=== PATIENT | female | born 1995 | race Caucasian/White ===

== ENCOUNTER 2021-09-29 11:12 | Emergency (ER) | payer OTHER ==
[~2021-09-29] VITALS: Ht 175.3 cm; Wt 90.0 kg
[2021-09-29] MEDS ORDERED: LIDO:MAALOX 1:1 20 ML SINGLE DOSE. PO ONE (11:30)
[2021-09-29] MEDS ORDERED: IOHEXOL 300 MG/ML 75 ML VIAL. IV ONE (11:30)
[2021-09-29] MEDS ORDERED: ONDANSETRON PF 4 MG/2 ML VIAL. IVP ONE (11:30)
[2021-09-29] MEDS ORDERED: IV NORMAL SALINE 1,000ML 1,000 ML IV SCH (11:30)
--- NOTE | 2021-09-29 11:34 | PHYS DOC ---
General Adult HPI: HPI: Patient is a 26-year-old female who presents to the emergency department with nausea, vomiting and diarrhea that started this morning at 8 AM. Patient is also reporting epigastric sharp pain that she rates 10 out of 10. No treatment prior to arrival. Patient has no medical history, history of appendectomy. She states that she took a Plan B yesterday. Patient denies any fevers, urinary symptoms or blood in her stools or vomit. Patient reports that she did smoke marijuana today but has never had nausea and vomiting after smoking marijuana and reports that the symptoms started before she smoked marijuana. (JAZMIN COTO APRN) Review of Systems: Review of Systems: Constitutional: negative unless reported in HPI Eyes: negative unless reported in HPI HENT: negative unless reported in HPI Respiratory: negative unless reported in HPI Cardiovascular: negative unless reported in HPI GI: negative unless reported in HPI : negative unless reported in HPI Musculoskeletal: negative unless reported in HPI Integument: negative unless reported in HPI Neurologic: negative unless reported in HPI Endocrine: negative unless reported in HPI Lymphatic: negative unless reported in HPI Psychiatric: negative unless reported in HPI (JAZMIN COTO APRN) Physical Exam: PE: Constitutional: Well developed, well nourished, no acute distress, non-toxic appearance. [] HENT: Normocephalic, atraumatic, bilateral external ears normal, oropharynx moist, no oral exudates, nose normal. [] Eyes: PERRL, EOMI, conjunctiva normal, no discharge. [] Neck: Normal range of motion, no stridor Cardiovascular:Heart rate regular rhythm, no murmur [] Lungs & Thorax: Bilateral breath sounds clear to auscultation, hyperventilation [] Abdomen: Bowel sounds normal, soft, no abdominal rigidity or guarding, negative Ochoa sign, no rebound tenderness, pain with palpation epigastric region, no masses, no pulsatile masses. [] Skin: Warm, dry, no erythema, no rash. [] Back: No tenderness, no CVA tenderness. [] Extremities: No tenderness, no cyanosis, no clubbing, ROM intact, no edema. [] Neurologic: Alert and oriented X 3, normal motor function, normal sensory fu nction, no focal deficits noted. [] Psychologic: Affect normal, judgement normal, mood normal. [] (JAZMIN COTO APRN) Current Patient Data: Labs: Laboratory Tests Test 09/29/21 11:43 09/29/21 11:45 09/29/21 12:10 09/29/21 12:18 White Blood Count 17.5 x10^3/uL Red Blood Count 4.21 x10^6/uL Hemoglobin 12.8 g/dL Hematocrit 38.1 % Mean Corpuscular Volume 90 fL Mean Corpuscular Hemoglobin 31 pg Mean Corpuscular Hemoglobin Concent 34 g/dL Red Cell Distribution Width 12.9 % Platelet Count 253 x10^3/uL Neutrophils (%) (Auto) 87 % Lymphocytes (%) (Auto) 10 % Monocytes (%) (Auto) 3 % Eosinophils (%) (Auto) 0 % Basophils (%) (Auto) 0 % Neutrophils # (Auto) 15.2 x10^3uL Lymphocytes # (Auto) 1.8 x10^3/uL Monocytes # (Auto) 0.5 x10^3/uL Eosinophils # (Auto) 0.0 x10^3/uL Basophils # (Auto) 0.1 x10^3/uL Platelet Estimate Pending Sodium Level 137 mmol/L Potassium Level 3.7 mmol/L Chloride Level 102 mmol/L Carbon Dioxide Level 19 mmol/L Anion Gap 16 Blood Urea Nitrogen 11 mg/dL Creatinine 0.9 mg/dL Estimated GFR (Cockcroft-Gault) 75.7 BUN/Creatinine Ratio 12 Glucose Level 159 mg/dL Calcium Level 9.3 mg/dL Total Bilirubin 0.5 mg/dL Aspartate Amino Transf (AST/SGOT) 24 U/L Alanine Aminotransferase (ALT/SGPT) 25 U/L Alkaline Phosphatase 51 U/L Total Protein 7.6 g/dL Albumin 4.2 g/dL Albumin/Globulin Ratio 1.2 Lipase 72 U/L Maternal Serum HCG Beta Subunit < 1 mIU/mL Influenza Type A (Rapid) Negative Influenza Type B (Rapid) Negative SARS-CoV-2 Antigen (Rapid) Negative Urine Collection Type Unknown Urine Color Yellow Urine Clarity Hazy Urine pH 7.5 Urine Specific [place] 1.025 Urine Protein 30 mg/dl Urine Glucose (UA) Neg mg/dL Urine Ketones (Stick) >=160 mg/dL Urine Blood Trace Urine Nitrite Neg Urine Bilirubin Neg Urine Urobilinogen Dipstick 0.2 mg/dL Urine Leukocyte Esterase Neg Urine RBC 1-2 /HPF Urine WBC Rare /HPF Urine Squamous Epithelial Cells Mod /LPF Urine Bacteria Few /HPF Urine Mucus Slight /LPF Urine Opiates Screen Neg Urine Methadone Screen Neg Urine Barbiturates Neg Urine Phencyclidine Screen Neg Urine Amphetamine/Methamphetamine Neg Urine Benzodiazepines Screen Neg Urine Cocaine Screen Neg Urine Cannabinoids Screen Pos Urine Ethyl Alcohol Neg Bedside Urine HCG, Qualitative hcg negative Current Medications Medications (Trade) Dose Ordered Sig/Kevin Route PRN Reason Start Time Stop Time Status Last Admin Dose Admin Multi-Ingredient Mouthwash/Gargle (Gi Cocktail) 20 ml 1X ONCE PO 09/29/21 11:30 09/29/21 12:11 DC 09/29/21 12:02 Sodium Chloride 1,000 ml @ 1,000 mls/hr Q1H IV 09/29/21 11:30 09/29/21 12:29 DC 09/29/21 11:53 Ondansetron HCl (Zofran) 4 mg 1X ONCE IVP 09/29/21 11:30 09/29/21 12:11 DC 09/29/21 11:53 Fentanyl Citrate (Fentanyl 2ml Vial) 50 mcg 1X ONCE IVP 09/29/21 11:30 09/29/21 12:11 DC 09/29/21 11:53 Iohexol (Omnipaque 300 Mg/ml) 75 ml 1X ONCE IV 09/29/21 11:30 09/29/21 12:11 DC 09/29/21 12:37 Haloperidol Lactate (Haldol) 5 mg STK-MED ONCE .ROUTE 09/29/21 12:24 09/29/21 12:24 DC Haloperidol Lactate (Haldol) 5 mg 1X ONCE IVP 09/29/21 12:30 09/29/21 12:33 DC 09/29/21 12:27 (JAZMIN COTO APRN) EKG: EKG: EKG performed by ER staff at 1234 shows sinus rhythm with a rate of 69 with PACs, QTC is 426, no STEMI read by Dr. Dill at 1234 [] (JAZMIN COTO APRN) Radiology/Procedures: Radiology/Procedures: []PROCEDURE: CT ABD PELV W/ IV CONTRST ONLY EXAM: Abdomen and pelvis CT with intravenous contrast. HISTORY: Epigastric pain. TECHNIQUE: Computed tomographic images of the abdomen and pelvis were obtained following the administration of intravenous contrast. Multiplanar reformatting was performed. *One or more of the following individualized dose reduction techniques were utilized for this examination: 1. Automated exposure control. 2. Adjustment of the mA and/or kV according to patient size. 3. Use of iterative reconstruction technique. COMPARISON: None. FINDINGS: The exam is limited due to motion. Evaluation of the lower thorax is unremarkable. No suspicious hepatic lesion is seen. There is slight fatty infiltration along the falciform ligament. The gallbladder, pancreas, spleen and adrenal glands are unremarkable. There is a small simple left renal cyst. Follow-up is not routinely performed for simple cysts. There is an incidental retroaortic left renal vein. The appendix is surgically absent. No abnormally thickened or dilated loop of bowel is seen. The bladder is unremarkable. The uterus is unremarkable. There are multiple ovarian follicles with a physiologic dominant left ovarian follicle measuring 1.5 cm. There is trace pelvic free fluid, within physiologic limits for a premenopausal female. The aorta is normal in caliber. There is no lymphadenopathy. There is no acute or suspicious osseous finding. IMPRESSION: 1. No acute finding. 2. Small simple left renal cyst. 3. Limited exam due to motion. Electronically signed by: Sanjana Aleman MD (09/29/2021 12:51 PM) [id number] DICTATED AND SIGNED BY: SANJANA ALEMAN MD DATE: 09/29/21 1248 CC: TESSIE DILL DO; JAZMIN COTO APRN; PCP,NO ~MTH0 0 (JAZMIN COTO APRN) Heart Score: C/O Chest Pain: N/A Risk Factors: Risk Factors: DM, Current or recent (<one month) smoker, HTN, HLP, family history of CAD, obesity. Risk Scores: Score 0 - 3: 2.5% MACE over next 6 weeks - Discharge Home Score 4 - 6: 20.3% MACE over next 6 weeks - Admit for Clinical Observation Score 7 - 10: 72.7% MACE over next 6 weeks - Early Invasive Strategies (JAZMIN COTO APRN) Course & Med Decision Making: Course & Med Decision Making Pertinent Labs and Imaging studies reviewed. (See chart for details) [] Patient presents to the emergency department with nausea, vomiting and diarrhea that started this morning. Patient is also reporting sharp epigastric pain. Patient's physical exam is reassuring. She does not take any medications, history of an appendectomy. Patient does smoke marijuana and smoked marijuana today but reports that her nausea vomiting and diarrhea started prior to smoking marijuana is possible the patient is experiencing cannabinoid hyperemesis. Work-up in the ER consisted of blood work, urinalysis, Covid/flu testing and CT scan of abdomen and pelvis. Patient treated with IV fluids and nausea medication. Patient had mild leukocytosis with a white blood cell count of 17.5 likely from her nausea and vomiting. CMP was unremarkable. Urinalysis did not show any infection but she did have ketones and patient was treated with IV fluids. Patient was positive for marijuana. Negative influenza and Covid t esting. CT scan was unremarkable. Patient was treated with Haldol as she likely is experiencing Cannabinoid hyperemesis syndrome, following the Haldol patient's nausea has resolved and her abdominal pain has improved. Patient can tolerate oral intake. Patient will be advised to discontinue marijuana use. She will be discharged home with nausea medication and advised to increase her fluids. Advised to stick to a clear liquid diet today followed by a brat diet. Advised to avoid eating any spicy, greasy or fatty foods. Patient's vital signs are stable. I discussed with patient all findings and diagnostic testing as well as the need to follow-up with PCP for further evaluation and treatment or return to the ER if any new or worsening symptoms. Strict return precautions were also discussed at length. Patient voiced understanding and agreement with the plan. Patient is hemodynamically stable at the time of disposition. (JAZMIN COTO APRN) Course & Med Decision Making I was the Attending physician on the above date of service of this patient. This patient was evaluated, examined, treated, and dispositioned from the emergency department by the mid-level practitioner. I reviewed case with midlevel practitioner and agreed to plan of care Electronically signed, Tessie Dill DO (TESSIE DILL DO) Shaina Disclaimer: Shaina Disclaimer: This electronic medical record was generated, in whole or in part, using a voice recognition dictation system. (JAZMIN COTO APRN) Departure Departure: Impression: Primary Impression: Cannabinoid hyperemesis syndrome Disposition: HOME / SELF CARE / HOMELESS Condition: GOOD Referrals: PCP,NO (PCP) Patient Instructions: Nausea and Vomiting Additional Instructions: You were seen in the emergency department today for nausea, vomiting and abdominal pain. Your blood work and urinalysis were unremarkable. You were noted to be mildly dehydrated which was treated with IV fluids. It is likely that you are experiencing the symptoms due to your marijuana use. Please discontinue your marijuana use. Please increase your fluids. I would stick to a clear liquid diet or bland diet for the rest of today. You can eat soups, broths, Jell-O, Gatorade. We also recommend a brat diet which includes bananas, rice, applesauce and toast. Avoid eating any foods that are spicy, greasy or fatty. You are being discharged home with nausea medication that you can take as needed. Follow-up with your primary care provider tomorrow regarding your ER visit. Return to the emergency department if you develop intractable nausea or vomiting, high fevers refractory to treatment, blood in your stools or vomit, urinary symptoms, abdominal pain or any new or worsening concerns. Scripts Ondansetron (ONDANSETRON ODT) 4 Mg Tab.rapdis 1 TAB PO PRN Q6-8HRS for nausea for 7 Days, #28 TAB 0 Refills Prov: JAZMIN COTO APRN 09/29/21 JAZMIN COTO APRN Sep 29, 2021 11:34 TESSIE DILL DO Sep 30, 2021 06:06
[2021-09-29 12:03] LABS: BASO # 0.1 x10^3/uL (0.0-0.2); BASO % 0 % (0-3); EOS % 0 % (0-3); HEMATOCRIT 38.1 % (36.0-47.0); HEMOGLOBIN 12.8 g/dL (12.0-15.5); LYMPH # 1.8 x10^3/uL (1.0-4.8); LYMPH % 10 % (24-48); MEAN CORPUSCULAR HEMOGLOBIN 31 pg (25-35); MEAN CORPUSCULAR HGB CONC 34 g/dL (31-37); MEAN CORPUSCULAR VOLUME 90 fL (79-100); MONO # 0.5 x10^3/uL (0.0-1.1); MONO % 3 % (0-9); NEUT # 15.2 x10^3uL (1.8-7.7); NEUT % 87 % (31-73); PLATELET COUNT 253 x10^3/uL (140-400); RED BLOOD COUNT 4.21 x10^6/uL (3.50-5.40); RED CELL DISTRIBUTION WIDTH 12.9 % (11.5-14.5); WHITE BLOOD COUNT 17.5 x10^3/uL (4.0-11.0)
[2021-09-29 12:16] LABS: CALCIUM 9.3 mg/dL (8.5-10.1); CREATININE 0.9 mg/dL (0.6-1.0); GFR 75.7; POTASSIUM 3.7 mmol/L (3.5-5.1)
[2021-09-29] MEDS ORDERED: HALOPERIDOL LACT 5 MG/ML VIAL. ONE (12:24)
[2021-09-29 12:25] LABS: ALBUMIN 4.2 g/dL (3.4-5.0); ALBUMIN/GLOBULIN RATIO 1.2 (1.0-1.7); TOTAL BILIRUBIN 0.5 mg/dL (0.2-1.0); TOTAL PROTEIN 7.6 g/dL (6.4-8.2)
[2021-09-29 12:30] LABS: BARBITURATES NEG (NEG); BENZODIAZEPINES NEG (NEG); CANNABINOIDS POS (NEG); COCAINE NEG (NEG); METHADONE NEG (NEG); OPIATES NEG (NEG); PHENCYCLIDINE NEG (NEG)
[2021-09-29] MEDS ORDERED: HALOPERIDOL LACT 5 MG/ML VIAL. IVP ONE (12:30)
[2021-09-29 12:35] LABS: AMPHETAMINE/METHAMPHETAMINE NEG (NEG)
[2021-09-29 12:35] LABS: INFLUENZA A PATIENT NEGATIVE (NEGATIVE); INFLUENZA B PATIENT NEGATIVE (NEGATIVE)
[2021-09-29 12:40] LABS: CLARITY,URINE HAZY; COLOR,URINE YELLOW
[2021-09-29 12:41] LABS: BACTERIA,URINE FEW /HPF (0-FEW); BILIRUBIN,URINE NEG (NEG); GLUCOSE,URINE NEG (NEG); NITRITE,URINE NEG (NEG); SQUAMOUS EPITHELIAL CELL,UR MOD /LPF; UROBILINOGEN,URINE 0.2 mg/dL (0.2 mg/dL); WBC,URINE RARE /HPF (0-4)
--- NOTE | 2021-09-29 12:53 | RAD ---
EXAM: Abdomen and pelvis CT with intravenous contrast. HISTORY: Epigastric pain. TECHNIQUE: Computed tomographic images of the abdomen and pelvis were obtained following the administ ration of intravenous contrast. Multiplanar reformatting was performed. *One or more of the following individualized dose reduction techniques were utilized for this examina tion: 1. Automated exposure control. 2. Adjustment of the mA and/or kV according to patient size. 3. Use of iterative reconstruction technique. COMPARISON: None. FINDINGS: The exam is limited due to motion. Evaluation of the lower thorax is unremarkable. No suspi cious hepatic lesion is seen. There is slight fatty infiltration along the falciform ligament. The ga llbladder, pancreas, spleen and adrenal glands are unremarkable. There is a small simple left renal c yst. Follow-up is not routinely performed for simple cysts. There is an incidental retroaortic left r enal vein. The appendix is surgically absent. No abnormally thickened or dilated loop of bowel is seen. The blad susan is unremarkable. The uterus is unremarkable. There are multiple ovarian follicles with a physiolo gic dominant left ovarian follicle measuring 1.5 cm. There is trace pelvic free fluid, within physiol ogic limits for a premenopausal female. The aorta is normal in caliber. There is no lymphadenopathy. There is no acute or suspicious osseous finding. IMPRESSION: 1. No acute finding. 2. Small simple left renal cyst. 3. Limited exam due to motion. Electronically signed by: Sanjana Jones MD (09/29/2021 12:51 PM) [id number]
[2021-09-29] MEDS ORDERED: ONDA4TAB12 PO (13:13)
--- NOTE | 2021-09-29 13:44 | EKG ---
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
[2021-09-29 13:55] VITALS: BP 132/70
[2021-09-29 15:13] LABS: % ATYL 2 % (0-0); % BANDS 4 % (0-9); % LYMPHS 15 % (24-48); % MONOS 1 % (0-10); % SEGS 78 % (35-66)
[2021-09-29 15:16] LABS: OVALOCYTES PRESENT
[2021-09-29 15:17] LABS: PLT ESTIMATE ADEQUATE (ADEQUATE)
== END 2021-09-29 14:03 | disposition home or self-care (01) ==
LOC: ER 11:12
DX: R11.2 Nausea with vomiting, unspecified (principal); F12.90 Cannabis use, unspecified, uncomplicated; Z20.822 Contact with and (suspected) exposure to COVID-19
CPT/HCPCS: 36415; 74177; 80053; 80307; 81001; 81025; 83690; 84702; 85007; 85025; 87428; 93005; 96361; 96374; 96375; 99285; J1630; J2405; J3010; J7030; Q9967